=== PATIENT | female | born 1955 | race Caucasian/White ===

== ENCOUNTER 2017-11-26 11:22 | Emergency (ER) | payer MEDICAID ==
[~2017-11-26] VITALS: Ht 162.6 cm; Wt 76.2 kg
[2017-11-26 12:17] VITALS: Ht 162.6 cm; Wt 76.2 kg
[2017-11-26 15:14] VITALS: BP 120/75
== END 2017-11-26 15:41 | disposition home or self-care (01) ==
LOC: ED 11:22
DX: J20.9 Acute bronchitis, unspecified (principal); M79.1 Myalgia; I10 Essential (primary) hypertension